=== PATIENT | male | born 1940 | race Caucasian/White ===

== ENCOUNTER 2017-11-05 12:01 | Day surgery (SDC) | payer MEDICARE, BC ==
[~2017-11-05] VITALS: Ht 177.8 cm; Wt 97.6 kg
[2017-11-05] MEDS ORDERED: NAPR220 PO (12:20)
[2017-11-05] MEDS ORDERED: LOSARTAN-HCTZ1 EAC1 PO (12:20)
[2017-11-05] MEDS ORDERED: AMLOATOR PO (12:20)
[2017-11-05] MEDS ORDERED: ASPI81CH PO (12:21)
[2017-11-05] MEDS ORDERED: TAMS.4ER PO (12:21)
[2017-11-05] MEDS ORDERED: Omeprazole20 M1 PO (12:22)
== END 2017-11-05 15:10 | disposition home or self-care (01) ==
LOC: ORSCSDS 12:01
PROVIDERS: Urology
PROC: 0TBC8ZZ Excision of Bladder Neck, Via Natural or Artificial Opening Endoscopic (ICD-10-PCS; principal; 2017-11-05 14:00)
DX: N32.0 Bladder-neck obstruction (principal); R31.0 Gross hematuria; I25.10 Atherosclerotic heart disease of native coronary artery without angina pectoris; I25.2 Old myocardial infarction; I10 Essential (primary) hypertension; K21.9 Gastro-esophageal reflux disease without esophagitis; E78.00 Pure hypercholesterolemia, unspecified; Z79.899 Other long term (current) drug therapy
CPT/HCPCS: 93005; 93010; J0744; J1100; J2370; J2405; J3010; J7120

== ENCOUNTER → 2017-12-18 | Outpatient (CLI) | payer MEDICARE, BC ==
[~2017-12-18] MED LIST: AMLOATOR PO; ASPI81CH PO; LOSARTAN-HCTZ1 EAC1 PO; NAPR220 PO; Omeprazole20 M1 PO; TAMS.4ER PO
== END | disposition home or self-care (01) ==
LOC: LAB 14:54
DX: N39.0 Urinary tract infection, site not specified (principal)
CPT/HCPCS: 87086

== ENCOUNTER → 2018-06-12 | Outpatient (CLI) | payer MEDICARE, BC ==
[2018-06-13 14:16] LABS: Stool Occult Bld Immuno 1 Negative (NEGATIVE)
== END ==
LOC: LAB EV 16:00 → EDSTATUS 11-26 15:40 → LAB FUT 11-26 15:40
PROVIDERS: Student in an Organized Health Care Education/Training Program
DX: R31.9 Hematuria, unspecified (principal); D50.9 Iron deficiency anemia, unspecified
CPT/HCPCS: 82274

== ENCOUNTER 2019-04-30 09:25 | Day surgery (SDC) | payer MEDICARE, BC ==
[~2019-04-30] VITALS: Ht 182.9 cm; Wt 91.6 kg
[~2019-04-30 09:25] MED LIST changes: +AMLO10/10 PO; +CYCL10 PO
[2019-04-30] MEDS ORDERED: NAPR500 (10:29)
== END 2019-04-30 12:19 | disposition home or self-care (01) ==
LOC: ORSCSDS 09:25
PROVIDERS: Student in an Organized Health Care Education/Training Program
PROC: 0DBK8ZX Excision of Ascending Colon, Via Natural or Artificial Opening Endoscopic, Diagnostic (ICD-10-PCS; principal; 2019-04-30 10:45)
PROC: 0DBL8ZX Excision of Transverse Colon, Via Natural or Artificial Opening Endoscopic, Diagnostic (ICD-10-PCS; principal; 2019-04-30 10:45)
PROC: 0DBN8ZX Excision of Sigmoid Colon, Via Natural or Artificial Opening Endoscopic, Diagnostic (ICD-10-PCS; principal; 2019-04-30 10:45)
PROC: 0DBH8ZX Excision of Cecum, Via Natural or Artificial Opening Endoscopic, Diagnostic (ICD-10-PCS; principal; 2019-04-30 10:45)
PROC: 0DBP8ZX Excision of Rectum, Via Natural or Artificial Opening Endoscopic, Diagnostic (ICD-10-PCS; principal; 2019-04-30 10:45)
DX: Z12.11 Encounter for screening for malignant neoplasm of colon (principal); D12.3 Benign neoplasm of transverse colon; D12.2 Benign neoplasm of ascending colon; D12.0 Benign neoplasm of cecum; K62.1 Rectal polyp; K63.5 Polyp of colon; K57.30 Diverticulosis of large intestine without perforation or abscess without bleeding; K64.8 Other hemorrhoids; I10 Essential (primary) hypertension; I25.10 Atherosclerotic heart disease of native coronary artery without angina pectoris; I25.2 Old myocardial infarction; K21.9 Gastro-esophageal reflux disease without esophagitis; E78.00 Pure hypercholesterolemia, unspecified; G47.33 Obstructive sleep apnea (adult) (pediatric); Z79.899 Other long term (current) drug therapy
CPT/HCPCS: 88305; J2704; J7120

== ENCOUNTER → 2022-09-05 | Outpatient (CLI) | payer MEDICARE, BC ==
[~2022-09-05] MED LIST changes: +NAPR500
== END | disposition home or self-care (01) ==
LOC: LAB SHORT 14:15
DX: R07.9 Chest pain, unspecified (principal)
CPT/HCPCS: 84484

== ENCOUNTER 2022-11-20 19:25 | Observation (INO) | payer MEDICARE, BC ==
[~2022-11-20] VITALS: Ht 180.3 cm; Wt 76.0 kg
[~2022-11-20 19:25] MED LIST changes: -NAPR500; +NAPR500 PO
[2022-11-20 20:00] LABS: BASOPHILS ABSOLUTE AUTO 0.03 K/mm3 (0.00-0.23); BASOPHILS PERCENT AUTO 0 % (0-2); EOSINOPHILS ABSOLUTE AUTO 0.07 K/mm3 (0.00-0.68); EOSINOPHILS PERCENT AUTO 1 % (0-6); Hematocrit 46.3 % (37.0-53.0); Hemoglobin 15.1 g/dL (13.5-17.5); IMMATURE GRAN ABSOLUTE AUTO 0.02 K/mm3 (0.00-0.10); IMMATURE GRAN PERCENT AUTO 0 % (0-1); LYMPHOCYTES ABSOLUTE AUTO 1.58 K/mm3 (0.84-5.20); LYMPHOCYTES PERCENT AUTO 23 % (21-46); MONOCYTES ABSOLUTE AUTO 0.77 K/mm3 (0.16-1.47); MONOCYTES PERCENT AUTO 11 % (4-13); Mean Corpuscular HGB 27.7 pg (26.0-34.0); Mean Corpuscular HGB Conc 32.6 g/dL (31.5-36.5); Mean Corpuscular Volume 85 fL (80-100); NEUTROPHILS ABSOLUTE AUTO 4.44 K/mm3 (1.96-9.15); NEUTROPHILS PERCENT AUTO 64 % (41-73); Platelet Count 241 K/mm3 (150-400); RDW Standard Deviation 57.1 fL (35.1-46.3); Red Blood Cell Count 5.45 M/mm3 (4.30-5.90); White Blood Cell Count 6.91 K/mm3 (4.00-11.30)
[2022-11-20] MEDS ORDERED: LOSARTAN POTASS25 M2 PO (20:21)
[2022-11-20 20:26] LABS: Albumin, Blood 4.2 g/dL (3.4-5.0); Albumin/Globulin Ratio 1.6 (0.8-1.8); Bilirubin, Total 0.8 mg/dL (0.1-1.0); Bun/Creatinine Ratio 25.2 (12.0-20.0); Calcium, Blood 9.3 mg/dL (8.5-10.1); Creatinine, Blood 0.99 mg/dL (0.60-1.20); Globulin, Blood 2.6 g/dL (2.2-4.0); Potassium, Blood 4.5 mmol/L (3.5-5.5); Total Protein, Blood 6.8 g/dL (6.4-8.2)
[2022-11-20 22:06] LABS: Source, Urine Clean Catch
[2022-11-20 22:40] LABS: Bilirubin, Urine Neg (Neg); Blood, Urine 4+ (Neg); Glucose Qualitative, Urine Neg (Neg); Ketones, Urine 1+ (Neg); Leukocyte Esterase, Urine 3+ (Neg); Nitrite, Urine Pos (Neg); Protein, Urine 2+ (Neg); Urobilinogen, Urine NORM (Normal)
[2022-11-20 22:54] LABS: Appearance, Urine Clear (Clear); Color, Urine Yellow (P-Yellow)
[2022-11-20 22:56] LABS: Bacteria Many /hpf; Squamous Epithelial Cells Mod /hpf (Few); White Blood Cells, Urine 50-100 /hpf (0-5)
[2022-11-21 05:04] LABS: BASOPHILS ABSOLUTE AUTO 0.04 K/mm3 (0.00-0.23); BASOPHILS PERCENT AUTO 1 % (0-2); EOSINOPHILS ABSOLUTE AUTO 0.09 K/mm3 (0.00-0.68); EOSINOPHILS PERCENT AUTO 2 % (0-6); Hematocrit 38.8 % (37.0-53.0); Hemoglobin 12.8 g/dL (13.5-17.5); IMMATURE GRAN ABSOLUTE AUTO 0.02 K/mm3 (0.00-0.10); IMMATURE GRAN PERCENT AUTO 0 % (0-1); LYMPHOCYTES ABSOLUTE AUTO 1.42 K/mm3 (0.84-5.20); LYMPHOCYTES PERCENT AUTO 24 % (21-46); MONOCYTES ABSOLUTE AUTO 0.73 K/mm3 (0.16-1.47); MONOCYTES PERCENT AUTO 12 % (4-13); Mean Corpuscular HGB 27.5 pg (26.0-34.0); Mean Corpuscular Volume 83 fL (80-100); Mean Platelet Volume 10.4 fL (9.1-12.4); NEUTROPHILS ABSOLUTE AUTO 3.66 K/mm3 (1.96-9.15); NEUTROPHILS PERCENT AUTO 62 % (41-73); Platelet Count 215 K/mm3 (150-400); RDW Coefficient Variation 18.5 % (11.7-14.2); RDW Standard Deviation 56.4 fL (35.1-46.3); Red Blood Cell Count 4.66 M/mm3 (4.30-5.90); White Blood Cell Count 5.96 K/mm3 (4.00-11.30)
--- NOTE | 2022-11-21 05:05 | NUR ---
SUMMARY: PATIENT ADMITTED OVERNIGHT FOR TIA. UPON ARIVAL TO UNIT PATIENT WAS AOX4. GENERALIZED WEAKNESS AND MILD L FACIAL DROOP. NO CHANGES OVERNIGHT. FACE STILL WITH L DROOP THIS AM FOR NEURO CHECK. 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 PATIENT ABLE TO EASILY HOLD CONVERSATION WITH NURSE. PATIENT STATES HE WOULD LIKE TO BE DISCHARGED EARLY THIS AM. WILL PASS MESSAGE ALONG TO DAYSHIFT RN. PATIENT ABLE TO STAND AT BEDSIDE TO USE URINAL WITH NURSE AND USES A WALKER AT BASELINE. VSS. CALL LIGHT IN REACH.
[2022-11-21 05:36] LABS: Albumin, Blood 3.2 g/dL (3.4-5.0); Albumin/Globulin Ratio 1.4 (0.8-1.8); Bilirubin, Total 0.7 mg/dL (0.1-1.0); Bun/Creatinine Ratio 26.6 (12.0-20.0); Calcium, Blood 8.6 mg/dL (8.5-10.1); Creatinine, Blood 0.9 mg/dL (0.60-1.20); Globulin, Blood 2.3 g/dL (2.2-4.0); Potassium, Blood 3.8 mmol/L (3.5-5.5); Total Protein, Blood 5.5 g/dL (6.4-8.2)
[2022-11-21 09:41] LABS: CHOL/HDL RATIO 1.9; Cholesterol 153 mg/dL (50-200); HDL Cholesterol 80 mg/dL (>39); LDL/HDL RATIO 0.8; Low Density Lipoprotein Chol 64 mg/dL (0-110); Triglycerides 45 mg/dL (30-160); Very Low Density Lipoprot Chol 9 mg/dL (6-32)
--- NOTE | 2022-11-21 16:49 | NUR ---
SHIFT SUMMARY NO ACUTE CHANGES THIS SHIFT. PT IS AOX4 AND HIS HAS BEEN AT THE BS MOST OF THE SHIFT. PT IS A 1 ASSIST WITH HIS OWN FWW. HE TAKES HIS MEDS WHOLE WITH WATER. HE ALSO CAN MAKE HIS NEEDS KNOWN AND USES THE CALL LIGHT WELL. WILL REPORT TO ONCOMING NURSE.
--- NOTE | 2022-11-22 04:17 | NUR ---
Patient resting in bed, no significant events overnight.
[2022-11-22] MEDS ORDERED: SULTRIDS PO (10:17)
[2022-11-22] MEDS ORDERED: ASPI81CH PO (10:17)
[2022-11-22] MEDS ORDERED: CLOP75 PO (10:17)
--- NOTE | 2022-11-22 11:50 | NUR ---
DISCHARGE SUMMARY PATIENT IS ALERT AND ORIENTED. PATIENT HAS HAD NO ACUTE EVENTS THIS SHIFT. PATIENT HAD NO EVENTS ON TELE. PATIENT HAD ZIO PATCH PLACED FOR OUTPATIENT MONITORING. PATIENT IS BEING DISCHARGED HOME WITH TRANSPORTING.
== END 2022-11-22 11:32 | disposition home or self-care (01) ==
LOC: ER 19:25 → MEDS 19:26
PROVIDERS: Internal Medicine; Student in an Organized Health Care Education/Training Program; ADMIT Internal Medicine
DX: G45.9 Transient cerebral ischemic attack, unspecified (principal); I63.9 Cerebral infarction, unspecified; N39.0 Urinary tract infection, site not specified; N18.30 Chronic kidney disease, stage 3 unspecified; I12.9 Hypertensive chronic kidney disease with stage 1 through stage 4 chronic kidney disease, or unspecified chronic kidney disease; N40.0 Benign prostatic hyperplasia without lower urinary tract symptoms; E78.5 Hyperlipidemia, unspecified; G47.33 Obstructive sleep apnea (adult) (pediatric)
CPT/HCPCS: 36415; 70450; 71046; 80053; 80061; 81001; 83036; 84484; 85025; 87086; 93005; 93010; 93246; 93306; 93880; 96361; 96372; 96374; 96376; 99285-25; A9270; G0378; J0696; J1650; J7030

== ENCOUNTER → 2023-03-14 | Outpatient (CLI) | payer MEDICARE, BC ==
[~2023-03-14] MED LIST changes: +CLOP75 PO; +LOSARTAN POTASS25 M2 PO; +SULTRIDS PO
[2023-03-14 12:04] LABS: BASOPHILS ABSOLUTE AUTO 0.07 K/mm3 (0.00-0.23); BASOPHILS PERCENT AUTO 1 % (0-2); EOSINOPHILS ABSOLUTE AUTO 0.04 K/mm3 (0.00-0.68); EOSINOPHILS PERCENT AUTO 1 % (0-6); Hematocrit 49.1 % (37.0-53.0); IMMATURE GRAN ABSOLUTE AUTO 0.03 K/mm3 (0.00-0.10); IMMATURE GRAN PERCENT AUTO 0 % (0-1); LYMPHOCYTES PERCENT AUTO 17 % (21-46); MONOCYTES ABSOLUTE AUTO 0.93 K/mm3 (0.16-1.47); MONOCYTES PERCENT AUTO 12 % (4-13); Mean Corpuscular HGB 28.9 pg (26.0-34.0); Mean Corpuscular HGB Conc 32.6 g/dL (31.5-36.5); Mean Corpuscular Volume 89 fL (80-100); Mean Platelet Volume 9.8 fL (9.1-12.4); NEUTROPHILS ABSOLUTE AUTO 5.65 K/mm3 (1.96-9.15); NEUTROPHILS PERCENT AUTO 70 % (41-73); Platelet Count 342 K/mm3 (150-400); RDW Coefficient Variation 15.6 % (11.7-14.2); RDW Standard Deviation 50.9 fL (35.1-46.3); Red Blood Cell Count 5.54 M/mm3 (4.30-5.90); White Blood Cell Count 8.12 K/mm3 (4.00-11.30)
[2023-03-14 12:12] LABS: Albumin, Blood 3.5 g/dL (3.4-5.0); Albumin/Globulin Ratio 0.9 (0.8-1.8); Bun/Creatinine Ratio 20.9 (12.0-20.0); Calcium, Blood 9.3 mg/dL (8.5-10.1); Creatinine, Blood 0.86 mg/dL (0.60-1.20); Globulin, Blood 3.8 g/dL (2.2-4.0); Potassium, Blood 4.1 mmol/L (3.5-5.5); Total Protein, Blood 7.3 g/dL (6.4-8.2)
== END | disposition home or self-care (01) ==
LOC: LAB SHORT 11:54 → LAB 11:54
PROVIDERS: Emergency Medicine
DX: L03.114 Cellulitis of left upper limb (principal)
CPT/HCPCS: 80053; 85025; 85651; 86140

== ENCOUNTER 2023-05-28 18:16 | Emergency (ER) | payer MEDICARE, BC ==
[~2023-05-28] VITALS: Ht 177.8 cm; Wt 70.3 kg
[2023-05-28] MEDS ORDERED: NEURONTIN300 MG (18:34)
[2023-05-28] MEDS ORDERED: HYDROCODONE-AC1 EA19 PO (18:34)
[2023-05-28 19:18] LABS: BASOPHILS ABSOLUTE AUTO 0.03 K/mm3 (0.00-0.23); BASOPHILS PERCENT AUTO 0 % (0-2); EOSINOPHILS ABSOLUTE AUTO 0.06 K/mm3 (0.00-0.68); EOSINOPHILS PERCENT AUTO 1 % (0-6); Hematocrit 44.7 % (37.0-53.0); Hemoglobin 14.6 g/dL (13.5-17.5); IMMATURE GRAN ABSOLUTE AUTO 0.04 K/mm3 (0.00-0.10); IMMATURE GRAN PERCENT AUTO 1 % (0-1); LYMPHOCYTES ABSOLUTE AUTO 1.04 K/mm3 (0.84-5.20); LYMPHOCYTES PERCENT AUTO 15 % (21-46); MONOCYTES ABSOLUTE AUTO 1.22 K/mm3 (0.16-1.47); MONOCYTES PERCENT AUTO 17 % (4-13); Mean Corpuscular HGB Conc 32.7 g/dL (31.5-36.5); Mean Corpuscular Volume 89 fL (80-100); Mean Platelet Volume 9.9 fL (9.1-12.4); NEUTROPHILS ABSOLUTE AUTO 4.67 K/mm3 (1.96-9.15); NEUTROPHILS PERCENT AUTO 66 % (41-73); Platelet Count 249 K/mm3 (150-400); RDW Coefficient Variation 15.1 % (11.7-14.2); RDW Standard Deviation 49.2 fL (35.1-46.3); Red Blood Cell Count 5.04 M/mm3 (4.30-5.90); White Blood Cell Count 7.06 K/mm3 (4.00-11.30)
[2023-05-28 19:42] LABS: Albumin/Globulin Ratio 0.8 (0.8-1.8); Bilirubin, Total 1.3 mg/dL (0.1-1.0); Bun/Creatinine Ratio 22.9 (12.0-20.0); Calcium, Blood 9.1 mg/dL (8.5-10.1); Creatinine, Blood 0.74 mg/dL (0.60-1.20); Globulin, Blood 3.8 g/dL (2.2-4.0); Potassium, Blood 4.6 mmol/L (3.5-5.5); Total Protein, Blood 6.8 g/dL (6.4-8.2)
[2023-05-28 21:00] VITALS: BP 132/75
[2023-05-28] MEDS ORDERED: CEPH500 PO (21:23)
[2023-05-28] MEDS ORDERED: DOXY100 PO (21:23)
== END 2023-05-28 21:55 | disposition home or self-care (01) ==
LOC: ER 18:16
PROVIDERS: Student in an Organized Health Care Education/Training Program
DX: L03.116 Cellulitis of left lower limb (principal); M25.572 Pain in left ankle and joints of left foot; Z79.899 Other long term (current) drug therapy; I10 Essential (primary) hypertension; I25.2 Old myocardial infarction
CPT/HCPCS: 73562-LT; 73590; 73610; 80053; 85025; 93971; 99284-25; A9270

== ENCOUNTER 2023-08-22 16:44 | Observation (INO) | payer MEDICARE, BC ==
[~2023-08-22] VITALS: Ht 177.8 cm; Wt 70.3 kg
[~2023-08-22 16:44] MED LIST changes: +CEPH500 PO; +DOXY100 PO; +HYDROCODONE-AC1 EA19 PO; +NEURONTIN300 MG PO
[2023-08-22 17:16] LABS: BASOPHILS ABSOLUTE AUTO 0.01 K/mm3 (0.00-0.23); BASOPHILS PERCENT AUTO 0 % (0-2); EOSINOPHILS PERCENT AUTO 0 % (0-6); Hematocrit 48.3 % (37.0-53.0); Hemoglobin 16.3 g/dL (13.5-17.5); IMMATURE GRAN ABSOLUTE AUTO 0.03 K/mm3 (0.00-0.10); IMMATURE GRAN PERCENT AUTO 1 % (0-1); LYMPHOCYTES ABSOLUTE AUTO 0.44 K/mm3 (0.84-5.20); LYMPHOCYTES PERCENT AUTO 9 % (21-46); MONOCYTES ABSOLUTE AUTO 0.06 K/mm3 (0.16-1.47); MONOCYTES PERCENT AUTO 1 % (4-13); Mean Corpuscular HGB 29.3 pg (26.0-34.0); Mean Corpuscular HGB Conc 33.7 g/dL (31.5-36.5); Mean Corpuscular Volume 87 fL (80-100); Mean Platelet Volume 10.6 fL (9.1-12.4); NEUTROPHILS ABSOLUTE AUTO 4.35 K/mm3 (1.96-9.15); NEUTROPHILS PERCENT AUTO 89 % (41-73); Platelet Count 285 K/mm3 (150-400); RDW Coefficient Variation 14.5 % (11.7-14.2); RDW Standard Deviation 46.2 fL (35.1-46.3); Red Blood Cell Count 5.56 M/mm3 (4.30-5.90); White Blood Cell Count 4.89 K/mm3 (4.00-11.30)
[2023-08-22 17:41] LABS: Albumin, Blood 3.8 g/dL (3.4-5.0); Albumin/Globulin Ratio 1.1 (0.8-1.8); Bilirubin, Total 0.6 mg/dL (0.1-1.0); Bun/Creatinine Ratio 31.5 (12.0-20.0); Calcium, Blood 9.2 mg/dL (8.5-10.1); Creatinine, Blood 0.73 mg/dL (0.60-1.20); Globulin, Blood 3.4 g/dL (2.2-4.0); Potassium, Blood 4.3 mmol/L (3.5-5.5); Total Protein, Blood 7.2 g/dL (6.4-8.2)
[2023-08-22] MEDS ORDERED: ATORVASTATIN CA20 MG PO (17:56)
[2023-08-22] MEDS ORDERED: LOSA25 PO (17:56)
[2023-08-22] MEDS ORDERED: NAPR500 PO (17:57)
[2023-08-22] MEDS ORDERED: Aspir 8181 MG PO (17:57)
[2023-08-22 18:10] LABS: International Normalized Ratio 1.04; Prothrombin Time Results 10.9 Sec (9.7-11.5)
[2023-08-22] MEDS ORDERED: Voltaren100 GM TOP (19:40)
--- NOTE | 2023-08-22 22:03 | NUR ---
PT ARRIVED TO ROOM 340 FROM ER AT 2203 BY WHEELCHAIR AND ONE PERSON ASSIST. PT STAND PIVOT WITH ONE TO TWO PERSON ASSIST FROM WHEELCHAIR TO BED. NO MEDS WITH PATIENT ON TRANSPORT.
[2023-08-22 22:09] VITALS: BP 146/96
--- NOTE | 2023-08-23 04:43 | NUR ---
SHIFT SUMMARY PATIENT A&O X4. PATIENT IS PLEASANT, CALM, AND COOPERATIVE WITH CARE. IV INFUSING NS PER ORDER-SEE EMAR. PATIENT REPORTS THAT HE GETS PAIN IN HIS LEFT HAND FROM HIS ARTHRITIS AND HE USES VOLTAREN GEL- BROUGHT IN AND VERIFIED BY PHARMACY. PATIENT SLEEPING WELL WITH RESPIRATIONS EQUAL AND UNLABORED. PATIENT IS A STAND PIVOT TO THE BSC WITH 1-2 PERSON ASSIST. PER PATIENTS SHE STATES PATIENT IS BACK TO BASELINE FROM EVENTS IN THE ER. BED IS LOCKED IN THE LOWEST POSITION WITH CALL LIGHT IN REACH FOR SAFETY. NO S/S OF DISTRESS NOTED AT THIS TIME.
[2023-08-23 05:23] VITALS: BP 154/99
[2023-08-23 07:44] VITALS: BP 151/85
--- NOTE | 2023-08-23 18:28 | NUR ---
SHIFT SUMMARY PATIENT ALERT AND INTERACTIVE. ABLE TO TRANSFER AND TAKE SOME STEPS WITH MINIMAL ASSISTANCE. PATIENT STATES THAT THIS IS HIS BASELINE. PATIENT STATES PAIN IS CHRONIC AND CURRENTLY MANANGED. PATIENT HAD RECENT INJECTIONS TO SPINE FOR SCIATIC PAIN. MRI AND CAROTID ULTRASOUND DONE FIRST THING THIS MORNING. CTA ORDERED AND COMPLETED THIS EVENING. DISCHARGE ORDERS PLACED AND PATIENT TO BE DISCHARGED HOME WITH HOME HEALTH. PATIENT TO START PLAVIX AT HOME.
[2023-08-23] MEDS ORDERED: CLOP75 PO (19:25)
--- NOTE | 2023-08-23 19:43 | NUR ---
DISCHARGED HOME. DISCHARGE INSTRUCTIONS REVIEWED WITH PATIENT AND . TRANSPORTED OUT TO PERSONAL VEHICLE AT EMERGENCY ROOM ENTERANCE WITH PERSONAL BELONGINGS. TO DRIVE PATIENT HOME.
== END 2023-08-23 19:40 | disposition home health service (06) ==
LOC: ER 16:44 → MEDS 16:45 → ER 20:04 → MEDS 20:04
PROVIDERS: Physician Assistant; Student in an Organized Health Care Education/Training Program; ADMIT Internal Medicine
DX: G45.9 Transient cerebral ischemic attack, unspecified (principal); I10 Essential (primary) hypertension; M19.90 Unspecified osteoarthritis, unspecified site
CPT/HCPCS: 36415; 70450; 70496; 70551; 80053; 85018; 85025; 85610; 85730; 93005; 93010; 93880; 96372; 99285-25; A9270; G0378; J1650; J7030; Q9967

== ENCOUNTER → 2023-11-13 | Outpatient (CLI) | payer MEDICARE, BC ==
[~2023-11-13] MED LIST changes: +ATORVASTATIN CA20 MG PO; +Aspir 8181 MG PO; +LOSA25 PO; +Voltaren100 GM TOP
[2023-11-13 16:37] LABS: BASOPHILS ABSOLUTE AUTO 0.05 K/mm3 (0.00-0.23); BASOPHILS PERCENT AUTO 1 % (0-2); EOSINOPHILS ABSOLUTE AUTO 0.03 K/mm3 (0.00-0.68); EOSINOPHILS PERCENT AUTO 0 % (0-6); Hematocrit 47.8 % (37.0-53.0); Hemoglobin 15.6 g/dL (13.5-17.5); IMMATURE GRAN ABSOLUTE AUTO 0.04 K/mm3 (0.00-0.10); IMMATURE GRAN PERCENT AUTO 0 % (0-1); LYMPHOCYTES ABSOLUTE AUTO 0.89 K/mm3 (0.84-5.20); LYMPHOCYTES PERCENT AUTO 9 % (21-46); MONOCYTES ABSOLUTE AUTO 1.34 K/mm3 (0.16-1.47); MONOCYTES PERCENT AUTO 14 % (4-13); Mean Corpuscular HGB 28.9 pg (26.0-34.0); Mean Corpuscular HGB Conc 32.6 g/dL (31.5-36.5); Mean Corpuscular Volume 89 fL (80-100); Mean Platelet Volume 9.8 fL (9.1-12.4); NEUTROPHILS ABSOLUTE AUTO 7.48 K/mm3 (1.96-9.15); NEUTROPHILS PERCENT AUTO 76 % (41-73); Platelet Count 298 K/mm3 (150-400); RDW Coefficient Variation 15.5 % (11.7-14.2); Red Blood Cell Count 5.39 M/mm3 (4.30-5.90); White Blood Cell Count 9.83 K/mm3 (4.00-11.30)
[2023-11-13 16:46] LABS: Albumin, Blood 3.5 g/dL (3.4-5.0); Albumin/Globulin Ratio 1.1 (0.8-1.8); Bun/Creatinine Ratio 23.9 (12.0-20.0); Calcium, Blood 8.8 mg/dL (8.5-10.1); Creatinine, Blood 0.92 mg/dL (0.60-1.20); Globulin, Blood 3.2 g/dL (2.2-4.0); Potassium, Blood 4.2 mmol/L (3.5-5.5); Total Protein, Blood 6.7 g/dL (6.4-8.2)
== END | disposition home or self-care (01) ==
LOC: LAB 16:24 → LAB SHORT 16:24
PROVIDERS: Physician Assistant
DX: M00.80 Arthritis due to other bacteria, unspecified joint (principal); M25.421 Effusion, right elbow
CPT/HCPCS: 80053; 84550; 85025; 85651

== ENCOUNTER → 2024-09-13 | Outpatient (CLI) | payer MEDICARE, BC ==
[2024-09-14 13:41] LABS: Adenovirus F 40/41 Not Detected (NOT DETECT); Astrovirus Not Detected (NOT DETECT); Campylobacter Sp Not Detected (NOT DETECT); Cryptosporidium Not Detected (NOT DETECT); Cyclospora Cayetanensis Not Detected (NOT DETECT); E. Coli O157 Not Detected (NOT DETECT); Entamoeba Histolytica Not Detected (NOT DETECT); Enteroaggregative E. coli-EAEC Not Detected (NOT DETECT); Enteropathogenic E. coli-EPEC Not Detected (NOT DETECT); Enterotoxigenic E. coli-ETEC Not Detected (NOT DETECT); Giardia Lamblia Not Detected (NOT DETECT); Norovirus GI/GII Not Detected (NOT DETECT); Plesiomonas Shigelloides Not Detected (NOT DETECT); Rotavirus A Not Detected (NOT DETECT); Salmonella Sp Not Detected (NOT DETECT); Sapovirus Not Detected (NOT DETECT); Shiga Toxin-prod E. coli-STEC Not Detected (NOT DETECT); Shigella/Enteroin E. coli-EIEC Not Detected (NOT DETECT); Vibrio Cholerae Not Detected (NOT DETECT); Vibrio Sp Not Detected (NOT DETECT); Yersinia Enterocolitica Not Detected (NOT DETECT)
== END | disposition home or self-care (01) ==
LOC: LAB 22:00 → LAB SHORT 22:00
PROVIDERS: Physician Assistant
DX: R19.7 Diarrhea, unspecified (principal)
CPT/HCPCS: 87507

== ENCOUNTER → 2024-12-11 | Outpatient (CLI) | payer MEDICARE, BC | LOC: LAB 17:30 → LAB SHORT 17:30 | DX: L08.9 Local infection of the skin and subcutaneous tissue, unspecified (principal) | CPT/HCPCS: 87070; 87077; 87186; 87205 ==